=== PATIENT | female | born 1955 | race Caucasian/White ===

== ENCOUNTER 2016-12-15 07:05 | Day surgery (SDC) | payer OTHER ==
[~2016-12-15] VITALS: Ht 162.6 cm; Wt 63.0 kg
[2016-12-15 07:41] VITALS: BP 198/99
[2016-12-15 10:31] VITALS: BP 135/69
== END 2016-12-15 14:25 | disposition home or self-care (01) ==
LOC: GI 07:05 → OR 09:30 → GI 14:25
PROVIDERS: Internal Medicine Gastroenterology
PROC: 0DB68ZZ Excision of Stomach, Via Natural or Artificial Opening Endoscopic (ICD-10-PCS; principal; 2016-12-15 09:30)
PROC: 0D718ZZ Dilation of Upper Esophagus, Via Natural or Artificial Opening Endoscopic (ICD-10-PCS; principal; 2016-12-15 09:30)
DX: K29.71 Gastritis, unspecified, with bleeding (principal); K31.7 Polyp of stomach and duodenum; R13.10 Dysphagia, unspecified; E11.9 Type 2 diabetes mellitus without complications; I10 Essential (primary) hypertension; Z86.010 Personal history of colon polyps; Z79.82 Long term (current) use of aspirin; Z79.84 Long term (current) use of oral hypoglycemic drugs; Z68.24 Body mass index [BMI] 24.0-24.9, adult
CPT/HCPCS: 43235; J0171; J1200; J1610; J2250; J2310; J3010; J3490

== ENCOUNTER → 2018-01-14 | Day surgery (SDC) | payer OTHER ==
[~2018-01-14] VITALS: Ht 162.6 cm; Wt 54.0 kg
[2018-01-14 07:30] VITALS: BP 197/95
[2018-01-14 11:03] VITALS: BP 165/74
== END | disposition home or self-care (01) ==
LOC: DS 06:57 → GI 09:30 → OR 10:30 → GI 10:30
PROVIDERS: Internal Medicine Gastroenterology
PROC: 0DB68ZZ Excision of Stomach, Via Natural or Artificial Opening Endoscopic (ICD-10-PCS; principal; 2018-01-14 09:30)
PROC: 0DB98ZX Excision of Duodenum, Via Natural or Artificial Opening Endoscopic, Diagnostic (ICD-10-PCS; 2018-01-14 09:30)
PROC: 0DB68ZX Excision of Stomach, Via Natural or Artificial Opening Endoscopic, Diagnostic (ICD-10-PCS; 2018-01-14 09:30)
PROC: 0D778ZZ Dilation of Stomach, Pylorus, Via Natural or Artificial Opening Endoscopic (ICD-10-PCS; 2018-01-14 09:30)
DX: K31.7 Polyp of stomach and duodenum (principal); K31.1 Adult hypertrophic pyloric stenosis
CPT/HCPCS: 43235; C1769; J1200; J1610; J2250; J2310; J3010; J3490

== ENCOUNTER 2018-08-09 07:05 | Day surgery (SDC) | payer OTHER ==
[~2018-08-09] VITALS: Ht 162.6 cm; Wt 55.8 kg
[2018-08-09 07:45] VITALS: BP 207/106
[2018-08-09 12:46] VITALS: BP 190/91
== END 2018-08-09 11:10 | disposition home or self-care (01) ==
LOC: GI 07:05 → OR 08:30 → GI 08:30
PROVIDERS: Internal Medicine Gastroenterology
PROC: 0DB68ZX Excision of Stomach, Via Natural or Artificial Opening Endoscopic, Diagnostic (ICD-10-PCS; principal; 2018-08-09 08:30)
PROC: 0DB68ZZ Excision of Stomach, Via Natural or Artificial Opening Endoscopic (ICD-10-PCS; 2018-08-09 08:30)
PROC: 0W3P8ZZ Control Bleeding in Gastrointestinal Tract, Via Natural or Artificial Opening Endoscopic (ICD-10-PCS; 2018-08-09 08:30)
PROC: 0D758ZZ Dilation of Esophagus, Via Natural or Artificial Opening Endoscopic (ICD-10-PCS; 2018-08-09 08:30)
DX: K29.71 Gastritis, unspecified, with bleeding (principal); Q27.33 Arteriovenous malformation of digestive system vessel; K31.7 Polyp of stomach and duodenum; K22.4 Dyskinesia of esophagus; D50.0 Iron deficiency anemia secondary to blood loss (chronic); R63.4 Abnormal weight loss; Z68.21 Body mass index [BMI] 21.0-21.9, adult; Z80.0 Family history of malignant neoplasm of digestive organs
CPT/HCPCS: 43235; J1200; J1610; J2250; J2310; J3010; J3490